=== PATIENT | male | born 1940 | race Caucasian/White ===

== ENCOUNTER → 2017-06-28 | Outpatient (CLI) | payer MEDICARE, BC ==
[~2017-06-28] MED LIST: AUGMENTIN 875875 MG PO; BAYER CHEWABLE81 MG PO; BRILINTA90 MG PO; CARDIZEM CD180 MG PO; CHANTIX1 MG PO; CLONAZEPAM 0.50.5 M1 PO; CLONAZEPAM0.25 MG PO; COUMADIN 1MG TAB1 M1 PO; COUMADIN 2 MG TA2 M1 PO; COUMADIN 3 MG TA3 M1 PO; COUMADIN 4 MG TA4 M1 PO; DIAZEPAM 10 MG10 M1 PO; EPIPEN 2-P0.3 MG/0.3 IM; EYE DROP15 ML OP; FENTANYL PA25 MCG/HR TRANSDERM; FENTANYL PA50 MCG/HR TRANSDERM; FENTANYL PATCH75 MCG PO; FENTANYL PATCH75 MCG TRANSDERM; FLEXERIL PO; LEVOCETIRIZINE D5 MG PO; LIDODERM 5%1 PATC1 TRANSDERM; LINZESS145 MCG PO; LISINOPRIL5 MG PO; MEDROL4 MG PO; MOVANTIK12.5 MG PO; NITROGLYCERIN0.4 MG SUBLING; NORVASC5 MG PO; OXYCODONE HCL 55 MG PO; PLAVIX; PLAVIX 75 MG TA75 M1 PO; PREDNISONE 10 M10 MG PO; PROSCAR 5MG TABL5 M1 PO; RANEXA1000 MG PO; RENVELA800 MG PO; TAMIFLU30 MG PO; VALIUM5 MG PO; ZOCOR20 MG PO
--- NOTE | 2017-07-04 10:00 | SLEEP ---
[address] [address] SLEEP STUDY REPORT Name: BONI MCDANIEL Room: [facility]#: [id number] Admission: 06/28/17 Attend Phys: Delgado Houston Discharge: Date of : 44 Report #: [id number] THIS REPORT FOR: //name// CC: Lorena Elias This study has been reviewed in its entirety by a board certified sleep specialist DATE OF SERVICE: 06/28/2017 REFERRING PHYSICIAN: Lorena Elias DO. TYPE OF STUDY: Split night study, polysomnography and CPAP titration. METHOD: The following parameters were monitored: Frontal, central and occipital EEG; electro-oculogram; submentalis EMG; nasal and oral airflow; anterior tibialis EMG; body position and electrocardiogram. Additionally, thoracic and abdominal movements were recorded by inductance plethysmography. Oxygen saturation was monitored using pulse oximeter. The tracing was scored using 30-second epochs. Hypopneas were scored per the [employer] definition using the 4% desaturation criteria. DIAGNOOSTIC PORTION OF THE STUDY: During the diagnostic portion of the study, the total recording time was 148.5 minutes. Total sleep time was 147 minutes. No REM sleep was captured during the entire study. SLEEP STAGING: During the diagnostic portion of the study, stage N1 31.2% of total sleep time, stage N2 68% of total sleep time. No stage 3 or REM captured during the diagnostic portion of the study. During the diagnostic portion of the study, the patient had 17 apnea with 40 hypopneas with overall apnea-hypopnea index of 23.4. The patient slept the entire study in supine position. LIMB MOVEMENT : The limb movement index was 3.7. The average O2 saturation during the diagnostic portion of the study was 89%. The lowest O2 saturation recorded was 86%. TITRATION: During the titration portion of the study, the patient was titrated on CPAP pressure of 5, 7 and then changed to BiPAP at 8/4, 10/4, 10/5, 12/5 and 13/6 cm of water. The CPAP pressure was inadequate to control the [place] [address] SLEEP STUDY REPORT Name: BONI MCDANIEL Room: [facility]#: [id number] Admission: 06/28/17 Attend Phys: Delgado Houston Discharge: Date of : 44 Report #: [id number] sleep apnea. His apnea-hypopnea index at a pressure of 7 was 36.2 with mostly central apnea imaging on PEP therapy. On BiPAP pressure of 12/5, the patient slept for 97.4 minutes. No REM sleep was captured. Both supine NREM sleep was captured. The apnea-hypopnea index was 1.1 and the lowest O2 saturation was recorded 87% at pressure 13/6 cm of water. The apnea-hypopnea index was 0 and the lowest O2 saturation recorded was 90%.; however, the patient slept only for 6.6 minutes at this level of pressure. The average O2 saturation during the CPAP titration of the study was 91% and the limb movement index was 16.3. IMPRESSION: 1. Moderate obstructive sleep apnea with apnea-hypopnea index of 23.4. Please note the patient spent the entire night in supine position. No REM sleep was captured during the study. 2. Elevated limb movement index during sleep. 3. Hypoxemia during sleep. RECOMMENDATIONS: 1. Trial of BiPAP therapy at a pressure of 13/6 cm of water with close clinical followup and data download. 2. Consider overnight oximetry on the BiPAP to determine the need for oxygen with the BiPAP therapy. 3. Recommend maintaining ideal body weight. 4. Recommend avoiding driving or operating machinery while sleepy. 5. Avoid alcohol hypnotics and sedative during sleep. <ELECTRONICALLY SIGNED> By: Meg Keith MD 07/04/17 1000 1035 [id number] Keith MD /nt
== END ==
LOC: M.SLEEPLAB 01:55
DX: G47.33 Obstructive sleep apnea (adult) (pediatric) (principal); I10 Essential (primary) hypertension; I48.2 Chronic atrial fibrillation; J18.9 Pneumonia, unspecified organism; I25.10 Atherosclerotic heart disease of native coronary artery without angina pectoris; E78.00 Pure hypercholesterolemia, unspecified; I25.5 Ischemic cardiomyopathy

== ENCOUNTER 2017-07-03 22:18 | Inpatient (IN) | payer MEDICARE, BC ==
[~2017-07-03] VITALS: Ht 180.3 cm; Wt 84.8 kg
[~2017-07-03 22:18] MED LIST changes: -CLONAZEPAM0.25 MG PO; -TAMIFLU30 MG PO
[2017-07-03 22:24] VITALS: BP 176/76
[2017-07-03 22:54] LABS: ABSOLUTE LYMPHOCYTES 0.9 thou/uL (0.8-5.3); ABSOLUTE MONOCYTES 0.6 thou/uL (0.0-1.2); ABSOLUTE NEUTROPHILS 5.2 thou/uL (1.6-8.1); BASOPHILS 0.4 %; EOSINOPHILS 0.1 %; HEMATOCRIT 45.8 % (42.0-52.0); HEMOGLOBIN 15.5 gm/dL (14.0-18.0); MCH 31.2 pg (26.0-34.0); MCHC 33.8 g/dL (28.0-37.0); MCV 92.3 fL (80.0-100.0); MONOCYTES 8.7 %; MPV 8.4 fl. (7.2-11.1); NUCLEATED RBCS 0 /100WBC; PLATELET COUNT* 173 thou/uL (150-400); POLYS 77.8 %; RBC 4.96 mil/uL (4.50-6.00); RDW-CV 14.4 % (10.5-14.5); WBC 6.7 thou/uL (4.0-11.0)
[2017-07-03 23:06] LABS: APTT 35.2 Seconds (25.0-31.3); INR 1.5; PROTIME 14.7 Seconds (9.20-11.50)
[2017-07-03 23:06] LABS: INFLUENZA B ANTIGEN None Detected (None Detect)
[2017-07-03 23:07] LABS: CALCIUM 9.1 mg/dL (8.5-10.1); CREATININE 1.3 mg/dL (0.6-1.3); POTASSIUM 4.3 mmol/L (3.5-5.1)
[2017-07-03 23:23] LABS: ALBUMIN 3.8 g/dL (3.4-5.0); MAGNESIUM 1.7 mg/dL (1.8-2.4); TOTAL BILIRUBIN 0.4 mg/dL (<0.1-1.0); TOTAL PROTEIN 8.7 g/dL (6.4-8.2); TROPONIN-I LEVEL 0.07 ng/mL (<0.06)
[2017-07-04] VITALS (8 sets, daily range): BP systolic 120–161; BP diastolic 53–84
[2017-07-04 08:17] LABS: CALCIUM 8.5 mg/dL (8.5-10.1); CREATININE 1.3 mg/dL (0.6-1.3); POTASSIUM 4.3 mmol/L (3.5-5.1)
[2017-07-04 10:24] LABS: URINE BILIRUBIN NEGATIVE (Negative); URINE BLOOD 2+ (Negative); URINE CLARITY CLEAR; URINE COLOR BROWN; URINE GLUCOSE-RANDOM NEGATIVE (Negative); URINE KETONES TRACE (Negative); URINE LEUKOCYTES-REFLEX NEGATIVE (Negative); URINE NITRITE-REFLEX NEGATIVE (Negative); URINE PROTEIN 2+ (Negative); URINE SPECIFIC GRAVITY >= 1.030 (1.005-1.030); URINE UROBILINOGEN 0.2 E.U./dl (0.2-1.0)
[2017-07-04 10:32] LABS: BACTERIA-REFLEX 1-9 Few /HPF (None Seen); CASTS None Seen /LPF (None Seen); CRYSTALS None Seen /LPF (None Seen); MUCUS 4-6 Moderate strn/LPF (None Seen); SQUAMOUS 0-3 Few /LPF (0-3); URINE RBC 3-10 Few /HPF (0-2); URINE WBC-REFLEX 0-5 Rare /HPF (0-5)
--- NOTE | 2017-07-04 17:22 | 2DMMODE ---
[place] [address] 2 D/M-MODE ECHOCARDIOGRAM Name: DANUTABONI REBOLLEDO Room: [address] ADM IN [facility]#: [id number] Admission: 07/03/17 Attend Phys: Fawad Escamilla Discharge: Date of : 44 Date of Service: 07/04/17 1721 Report #: [id number] THIS REPORT FOR: //name// APPROVED REPORT Study performed: 07/04/2017 15:18:39 EXAM: Comprehensive 2D, Doppler, and color-flow Echocardiogram Patient Location: In-Patient Room #: [facility] Status: routine BSA: 2.10 HR: 65 bpm BP: 122/62 mmHg Other Information Study Quality: Good Indications Dyspnea 2D Dimensions LVEF(%): 69.65 (>50%) IVSd: 14.23 (7-11mm) LVOT Diam: 20.14 (18-24mm) LVDd: 56.14 mm PWd: 13.04 (7-11mm) Ascending Ao: 34.22 (22-36mm) LVDs: 33.84 (25-40mm) Aortic Root: 38.66 mm Laura's LVEF: 69.65 % Volumes Left Atrial Volume (Systole) LA ESV Index: 35.30 mL/m2 Aortic Valve AoV Peak Jerod.: 1.52 m/s AO Peak Gr.: 9.19 mmHg LVOT Max P.30 mmHg AO Mean Gr.: 5.42 mmHg LVOT Mean P.49 mmHg LVOT Max V: 0.91 m/s AO V2 VTI: 27.40 cm LVOT Mean V: 0.55 m/s SANDOR (VTI): 2.05 cm2 LVOT V1 VTI: 17.59 cm Mitral Valve E/A Ratio: 3.38 MV Decel. Time: 151.25 [place] [address] 2 D/M-MODE ECHOCARDIOGRAM Name: JONASBONI Room: [address] IN .R.#: [id number] Admission: 07/03/17 Attend Phys: Fawad Escamilla Discharge: Date of : 44 Date of Service: 07/04/17 1721 Report #: [id number] MV E Max Jerod.: 1.09 m/s MV PHT: 43.86 ms MVA (PHT): 5.02 cm2 TDI E/Lateral E': 10.90 E/Medial E': 10.90 Medial E' Jerod.: 0.10 m/s Lateral E' Jerod.: 0.10 m/s Pulmonary Valve PV Peak Jerod.: 0.90 m/s PV Peak Gr.: 3.23 mmHg Tricuspid Valve TR Peak Gr.: 22.10 mmHg RVSP: 27.10 mmHg Left Ventricle The left ventricle is normal size. There is normal LV segmental wall motion. Borderline concentric left ventricular hypertrophy. Left ventricular systolic function is normal. The left ventricular ejection fraction is within the normal range. LVEF is 60%. Right Ventricle The right ventricle is normal size. The right ventricular systolic function is normal. Pacemaker lead is present in the right ventricle. Atria Left atrium is moderately dilated. Pacemaker lead is present in the right atrium. Right atrium is moderately dilated. Aortic Valve Aortic valve is mildly calcified. Trace aortic regurgitation. There is no aortic valvular stenosis. Mitral Valve The mitral valve is normal in structure. Trace mitral regurgitation. No evidence of mitral valve stenosis. Tricuspid Valve The tricuspid valve is normal in structure. Mild tricuspid regurgitation. The RVSP is __27 mmHg. Pulmonic Valve The pulmonary valve is normal in structure. There is no pulmonic valvular regurgitation. [place] [address] 2 D/M-MODE ECHOCARDIOGRAM Name: BONI MCDANIEL Room: [address] IN ..#: [id number] Admission: 07/03/17 Attend Phys: Fawad Escamilla Discharge: Date of : 44 Date of Service: 07/04/17 1721 Report #: [id number] The aortic root is normal in size. IVC is normal in size and collapses with >50% inspiration Pericardium There is no pericardial effusion. <Conclusion> The left ventricle is normal size. Borderline concentric left ventricular hypertrophy. Left ventricular systolic function is normal. The left ventricular ejection fraction is within the normal range. LVEF is 60%. The right ventricle is normal size. Left atrium is moderately dilated. Pacemaker lead is present in the right atrium. Right atrium is moderately dilated. Aortic valve is mildly calcified. Trace aortic regurgitation. There is no aortic valvular stenosis. The mitral valve is normal in structure. Trace mitral regurgitation. No evidence of mitral valve stenosis. The tricuspid valve is normal in structure. Mild tricuspid regurgitation. The RVSP is __27 mmHg. IVC is normal in size and collapses with >50% inspiration There is no pericardial effusion. There is normal LV segmental wall motion. Pacemaker lead is present in the right ventricle. <ELECTRONICALLY SIGNED> By: Ja Rowe MD, FACC 07/04/171720 20 20 Ja Rowe MD, FACC /INF
[2017-07-05] VITALS: BP 114/66
[2017-07-05 04:00] VITALS: BP 106/52
[2017-07-05 05:28] LABS: INR 1.8; PROTIME 17.8 Seconds (9.20-11.50)
[2017-07-05 05:31] LABS: HEMATOCRIT 39.3 % (42.0-52.0); MCHC 32.8 g/dL (28.0-37.0); MCV 91.6 fL (80.0-100.0); NUCLEATED RBCS 0 /100WBC; PLATELET COUNT* 163 thou/uL (150-400); RBC 4.29 mil/uL (4.50-6.00); RDW-CV 14.2 % (10.5-14.5); WBC 11.8 thou/uL (4.0-11.0)
[2017-07-05 05:33] LABS: HEMOGLOBIN 12.9 gm/dL (14.0-18.0)
[2017-07-05 05:58] LABS: ABSOLUTE LYMPHOCYTES 0.6 thou/uL (0.8-5.3); ABSOLUTE MONOCYTES 0.5 thou/uL (0.0-1.2); ABSOLUTE NEUTROPHILS 10.7 thou/uL (1.6-8.1); ANISOCYTOSIS 1+; PLATELET ESTIMATE ADEQUATE; POIKILOCYTOSIS 1+
[2017-07-05 06:05] LABS: CALCIUM 9.1 mg/dL (8.5-10.1); POTASSIUM 4.2 mmol/L (3.5-5.1)
[2017-07-05 07:50] VITALS: BP 122/68
[2017-07-05] MEDS ORDERED: CLONAZEPAM0.25 MG PO (08:38)
[2017-07-05 11:59] VITALS: BP 122/47
[2017-07-05] MEDS ORDERED: TAMIFLU30 MG PO (13:41)
[2017-07-05 13:48] VITALS: BP 122/47
--- NOTE | 2017-07-05 17:35 | EKG ---
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1940 Requested By: Nagi Parks Order Number: [id number] MD: Jose M Mcmillan Measurements Intervals [place] Rate: 75 P: RI: QRS: 56 QRSD: 97 T: -44 QT: 372 QTc: 416 Interpretive Statements Afib/flut and V-paced complexes No further rhythm analysis attempted due to paced rhythm Borderline low voltage, extremity leads Nonspecific T abnormalities, lateral leads Compared to ECG 02/20/2017 22:36:24 T-wave abnormality now present Electronically Signed On 07-05-2017 17:35:12 [employer] SUPERVIS[employer] by Jose M Mcmillan [email or web address] <ELECTRONICALLY SIGNED> By: Jose M Mcmillan MD, FACC 07/05/17 1735 2227 222 Jose M Mcmillan MD, FAC /EPI
== END 2017-07-05 14:42 | disposition home or self-care (01) | DRG 177 ==
LOC: M.ERS 22:18 → M.2W 23:42 → M.TBA-ER 23:42 → M.2W 07-04 00:25
PROVIDERS: Emergency Medicine Emergency Medical Services; Internal Medicine; ADMIT Internal Medicine
DX: J15.6 Pneumonia due to other Gram-negative bacteria (principal); J96.01 Acute respiratory failure with hypoxia; M62.82 Rhabdomyolysis; R65.10 Systemic inflammatory response syndrome (SIRS) of non-infectious origin without acute organ dysfunction; J09.X1 Influenza due to identified novel influenza A virus with pneumonia; M19.90 Unspecified osteoarthritis, unspecified site; I25.10 Atherosclerotic heart disease of native coronary artery without angina pectoris; J44.9 Chronic obstructive pulmonary disease, unspecified; G89.29 Other chronic pain; I10 Essential (primary) hypertension; E78.5 Hyperlipidemia, unspecified; F17.210 Nicotine dependence, cigarettes, uncomplicated; I48.91 Unspecified atrial fibrillation; Z79.01 Long term (current) use of anticoagulants; Z95.0 Presence of cardiac pacemaker; Z86.73 Personal history of transient ischemic attack (TIA), and cerebral infarction without residual deficits; Z88.8 Allergy status to other drugs, medicaments and biological substances; Z91.018 Allergy to other foods; I25.2 Old myocardial infarction; Z95.5 Presence of coronary angioplasty implant and graft; Z82.49 Family history of ischemic heart disease and other diseases of the circulatory system; Z87.01 Personal history of pneumonia (recurrent)

== ENCOUNTER → 2017-10-13 | Outpatient (CLI) | payer MEDICARE, BC ==
[~2017-10-13] MED LIST changes: +CLONAZEPAM0.25 MG PO; +TAMIFLU30 MG PO
[2017-10-13 14:27] LABS: ANION GAP 7 mmol/L (7-16); BUN 15 mg/dL (7-18); CALCIUM 9.2 mg/dL (8.5-10.1); CHLORIDE 106 mmol/L (98-107); CHOLESTEROL 140 mg/dL (<200); CO2 29 mmol/L (21-32); CREATININE 1.3 mg/dL (0.6-1.3); GLUCOSE 93 mg/dL (70-99); HDL CHOLESTEROL 59 mg/dL (>40); LDL CHOLESTEROL 68 mg/dL (<100); NT-PRO BRAIN NAT PEPTIDE 579 pg/mL (<300); POTASSIUM 4.6 mmol/L (3.5-5.1); SODIUM 142 mmol/L (136-145); TC:HDL 2.4 Ratio (Not establshd); TRIGLYCERIDE 67 mg/dL (<150); VLDL 13 mg/dL (<40)
[2017-10-13 14:31] LABS: SERUM ASSESSMENT Clear
== END ==
LOC: M.ULTRA 13:00
PROVIDERS: Internal Medicine Cardiovascular Disease
DX: I77.9 Disorder of arteries and arterioles, unspecified (principal); Z88.8 Allergy status to other drugs, medicaments and biological substances; Z88.1 Allergy status to other antibiotic agents; I10 Essential (primary) hypertension; I63.9 Cerebral infarction, unspecified

== ENCOUNTER → 2018-04-04 | Outpatient (CLI) | payer MEDICARE, OTHER, BC | LOC: M.NUC 04-03 10:03 | DX: M47.892 Other spondylosis, cervical region (principal) ==

== ENCOUNTER → 2018-05-03 | Outpatient (CLI) | payer MEDICARE, OTHER, BC | LOC: M.RAD 13:44 | DX: M25.561 Pain in right knee (principal); M25.562 Pain in left knee; G89.29 Other chronic pain ==

== ENCOUNTER → 2018-05-16 | Outpatient (CLI) | payer MEDICARE, OTHER, BC | LOC: M.CT 07:37 | DX: M67.461 Ganglion, right knee (principal); M71.21 Synovial cyst of popliteal space [Baker], right knee; M17.11 Unilateral primary osteoarthritis, right knee; Z88.8 Allergy status to other drugs, medicaments and biological substances ==

== ENCOUNTER 2018-07-01 11:33 | Emergency (ER) | payer MEDICARE, OTHER, BC ==
[~2018-07-01] VITALS: Ht 180.3 cm; Wt 84.4 kg
[2018-07-01] MEDS ORDERED: LINZESS290 MCG PO (11:58)
[2018-07-01] MEDS ORDERED: PROTONIX40 M1 PO (11:59)
[2018-07-01] MEDS ORDERED: REQUIP1 MG PO ×2 (12:00→12:01)
[2018-07-01 13:36] LABS: URINE BILIRUBIN NEGATIVE (Negative); URINE BLOOD TRACE (Negative); URINE CLARITY CLEAR; URINE COLOR YELLOW; URINE GLUCOSE-RANDOM NEGATIVE (Negative); URINE KETONES NEGATIVE (Negative); URINE LEUKOCYTES-REFLEX NEGATIVE (Negative); URINE NITRITE-REFLEX NEGATIVE (Negative); URINE PROTEIN NEGATIVE (Negative); URINE SPECIFIC GRAVITY >= 1.030 (1.005-1.030); URINE UROBILINOGEN 0.2 E.U./dl (0.2-1.0)
[2018-07-01 13:55] VITALS: BP 121/79
== END 2018-07-01 13:57 | disposition home or self-care (01) ==
LOC: M.ERS 11:33
PROVIDERS: Nurse Practitioner Family
DX: S00.83XA Contusion of other part of head, initial encounter (principal); I10 Essential (primary) hypertension; E78.00 Pure hypercholesterolemia, unspecified; I48.91 Unspecified atrial fibrillation; F17.210 Nicotine dependence, cigarettes, uncomplicated; Z87.01 Personal history of pneumonia (recurrent); Z95.5 Presence of coronary angioplasty implant and graft; Z88.8 Allergy status to other drugs, medicaments and biological substances; Z91.018 Allergy to other foods; Z86.73 Personal history of transient ischemic attack (TIA), and cerebral infarction without residual deficits; W18.2XXA Fall in (into) shower or empty bathtub, initial encounter; Y93.E1 Activity, personal bathing and showering; Y92.89 Other specified places as the place of occurrence of the external cause; Y99.8 Other external cause status

== ENCOUNTER 2019-09-20 06:18 | Emergency (ER) | payer MEDICARE, OTHER, BC ==
[~2019-09-20] VITALS: Ht 180.3 cm; Wt 78.0 kg
[~2019-09-20 06:18] MED LIST changes: +LINZESS290 MCG PO; +PROTONIX40 M1 PO; +REQUIP1 MG PO
[2019-09-20 07:17] LABS: HEMATOCRIT 36.9 % (42.0-52.0); HEMOGLOBIN 12.9 gm/dL (14.0-18.0); MCH 34.1 pg (26.0-34.0); MCHC 34.9 g/dL (28.0-37.0); MCV 97.5 fL (80.0-100.0); MPV 8.6 fl. (7.2-11.1); RBC 3.79 mil/uL (4.50-6.00); RDW-CV 14.4 % (10.5-14.5); WBC 5.8 thou/uL (4.0-11.0)
[2019-09-20 07:28] LABS: CALCIUM 8.3 mg/dL (8.5-10.1); CREATININE 1.1 mg/dL (0.6-1.3)
[2019-09-20 07:29] LABS: INR 2.1; PROTIME 20.7 Seconds (9.20-11.50)
[2019-09-20] MEDS ORDERED: KEFLEX500 M1 PO ×2 (08:27→08:31)
[2019-09-20 08:46] VITALS: BP 134/79
--- NOTE | 2019-09-20 12:51 | EKG ---
[place] [address] ELECTROCARDIOGRAM REPORT Name: BONI MCDANIEL [facility] [id number] Admission: 09/20/19 Attend Phys: Discharge: 09/20/19 Date of : 44 Date of Service: 09/20/1938 Report #: [id number] THIS REPORT FOR: //name// [facility] ED Test Date: 2019-09-20 Test Time: 06:40:25 Pat Name: BONI MCDANIEL Department: Room: Gender: Transmission Technician: [place] : 1940 Requested By: Nagi Parks Order Number: [id number] Cherelle MD: Ja Rowe Measurements Intervals [place] Rate: 66 P: 13 SD: 236 QRS: -39 QRSD: 153 T: 122 QT: 456 QTc: 478 Interpretive Statements Ventricular-paced rhythm No further analysis attempted due to paced rhythm Compared to ECG 07/03/2017 22:27:16 T-wave abnormality no longer present Electronically Signed On 09-20-2019 12:50:17 CDT by Ja Rowe [email or web address] <ELECTRONICALLY SIGNED> By: Ja Rowe MD, [facility] 09/20/19 1250 0640 0640 Ja Rowe MD, [facility] /EPI
== END 2019-09-20 08:46 | disposition home or self-care (01) ==
LOC: M.ERS 06:18
PROVIDERS: Personal Emergency Response Attendant
DX: S01.81XA Laceration without foreign body of other part of head, initial encounter (principal); S01.412A Laceration without foreign body of left cheek and temporomandibular area, initial encounter; S51.812A Laceration without foreign body of left forearm, initial encounter; I10 Essential (primary) hypertension; I48.91 Unspecified atrial fibrillation; E78.00 Pure hypercholesterolemia, unspecified; F17.210 Nicotine dependence, cigarettes, uncomplicated; Z86.73 Personal history of transient ischemic attack (TIA), and cerebral infarction without residual deficits; Z95.5 Presence of coronary angioplasty implant and graft; Z95.0 Presence of cardiac pacemaker; Z91.018 Allergy to other foods; Z88.6 Allergy status to analgesic agent; Z88.8 Allergy status to other drugs, medicaments and biological substances; W06.XXXA Fall from bed, initial encounter; Y93.89 Activity, other specified; Y92.89 Other specified places as the place of occurrence of the external cause; Y99.8 Other external cause status

== ENCOUNTER 2019-10-22 17:59 | Emergency (ER) | payer MEDICARE, OTHER, BC ==
[~2019-10-22] VITALS: Ht 180.3 cm; Wt 78.0 kg
[~2019-10-22 17:59] MED LIST changes: +KEFLEX500 M1 PO
[2019-10-22 18:43] VITALS: BP 130/73
== END 2019-10-22 18:44 | disposition home or self-care (01) ==
LOC: M.ERS 17:59
DX: S60.032A Contusion of left middle finger without damage to nail, initial encounter (principal); I10 Essential (primary) hypertension; E78.00 Pure hypercholesterolemia, unspecified; I48.91 Unspecified atrial fibrillation; F17.210 Nicotine dependence, cigarettes, uncomplicated; Z87.01 Personal history of pneumonia (recurrent); Z88.8 Allergy status to other drugs, medicaments and biological substances; Z91.018 Allergy to other foods; Z86.73 Personal history of transient ischemic attack (TIA), and cerebral infarction without residual deficits; W18.39XA Other fall on same level, initial encounter; Y93.89 Activity, other specified; Y92.89 Other specified places as the place of occurrence of the external cause; Y99.8 Other external cause status

== ENCOUNTER → 2020-03-25 | Outpatient (CLI) | payer MEDICARE, OTHER | LOC: M.ULTRA 08:00 | PROVIDERS: ATTEND Psychiatry & Neurology Neuromuscular Medicine | DX: I65.23 Occlusion and stenosis of bilateral carotid arteries (principal); G25.0 Essential tremor; R53.83 Other fatigue; I25.5 Ischemic cardiomyopathy; G62.9 Polyneuropathy, unspecified; M48.02 Spinal stenosis, cervical region ==